=== PATIENT | male | born 2000 | race Caucasian/White ===

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

== ENCOUNTER 2020-10-21 13:10 | Outpatient (RCR) | payer OTHER, SELFPAY | END 2020-12-07 23:59 | LOC: IMMUN 13:10 | PROVIDERS: Referring Provider Family Medicine; Visit Provider Family Medicine | DX: Z23 Encounter for immunization (principal) | CPT/HCPCS: 0001A; 91300 ==

== ENCOUNTER 2021-05-24 11:00 | Emergency (ER) | payer OTHER, SELFPAY ==
[2021-05-24 11:01] VITALS: BP 122/67; PULSE 77; RESP 18; TEMP 36.6; O2SAT 100; BMI 18.1
--- NOTE | 2021-05-24 11:23 | CT_ITS ---
STUDY: CT BRAIN WITHOUT CONTRAST REASON FOR EXAM: Male, 21 years old. dizziness RADIATION DOSAGE (If Supplied By Facility): CTDIvol = ( 44.99 ) mGy, DLP = ( 812.98 ) mGycm TECHNIQUE: Transaxial CT imaging of the brain was performed without administration of intravenous contrast material. Individualized dose optimization techniques were used for this CT. COMPARISON: No relevant priors. FINDINGS: Normal size ventricles and extra-axial spaces for the patient''s age. Normal white matter tracts of the cerebral hemispheres. Again noted is the left basal ganglia prominent Virchow-Marcelino space. There is no intracranial hemorrhage. There are no findings of an acute ischemic infarction. Normal visualized paranasal sinuses. CT/Brain/Head without Contrast IMPRESSION: Unremarkable unenhanced CT scan of the brain. Electronically Signed: Jhonny Cruz MD at 12:44 EST Tel , Service support ,
--- NOTE | 2021-05-24 11:23 | EDS_ITS ---
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 He states that whenever he moves his head he gets dizzy room spinning sensation. He notes some associated nausea. No significant headaches. He states he feels off balance when he is walking. [facility] in the recommended that he come to the emergency room to get a scan. He denies any arm or leg weakness. No speech changes. No recent URIs. No tinnitus. PFSH PFSH Medical History Hernia Home Medications diazepam 5 mg PO Q8 PRN #10 tab 05/24/21 [Rx Last Taken Unknown] Allergy/AdvReac Type Severity Reaction Status Date / Time amoxicillin [From Augmentin] Allergy Shortness Verified 05/24/21 11:04 of breath clavulanic acid Allergy Shortness Verified 05/24/21 11:04 [From Augmentin] of breath hydrocodone Allergy Shortness Verified 05/24/21 11:04 of breath codeine AdvReac Other Verified 05/24/21 11:03 Social History (Updated 05/24/21 @ 11:[address] Severino Sultana, DO) current occupational status: student Smoking Status: Never smoker ROS ROS ED Constitutional Constitutional ED: Denies chills, fever(s) or weight loss Eyes Eyes: Denies change in vision or diplopia ENT ENT ED: Denies ear pain, rhinorrhea or sore throat Cardiovascular Cardiovascular: Denies chest pain, orthopnea, palpitations or racing heartbeat Respiratory/Chest Respiratory/Chest: Denies cough, dyspnea or orthopnea Gastrointestinal Gastrointestinal: Reports nausea; Denies abdominal pain, diarrhea or vomiting Genitourinary Genitourinary ED: Denies dysuria, hematuria or urinary frequency Musculoskeletal Musculoskeletal: Denies arthralgias or myalgias Integumentary Denies abscess or rash Neurologic Neurologic: Reports other Details: Dizziness ; Denies headache(s) or weakness Psychiatric Psychiatric: Denies anxiety, depression, suicidal ideation or suicidal thoughts Endocrine Endocrinology: Denies polydipsia, polyphagia or polyuria Allergic/Immunologic Allergic/Immunologic ED: Denies mouth swelling, tongue swelling or urticaria EXAM Physical Exam Const Vital Signs: 05/24/21 11:01 05/24/21 12:00 Temperature 97.8 F 97.8 F Temperature Source Temporal Temporal Pulse Rate 77 77 Respiratory Rate 18 18 Respiratory Effort Normal Non-Labored Respiratory Pattern Normal Blood Pressure 122/67 H 122/67 H Blood Pressure Mean 85 85 Pulse Ox 100 100 Oxygen Delivery Method Room Air Room Air Positive well nourished and well developed General Appearance ED: well developed HEENT Reports normocephalic, head/scalp atraumatic, TM's clear and moist mucous membranes Negative for trauma Tympanic Membrane ED: Yes TM's clear Eyes PERRL and EOMs intact bilaterally Eyes Narrative: No nystagmus Neck no lymphadenopathy, supple and no JVD Resp normal respiratory effort and clear to auscultation bilaterally Cardio regular rate, regular rhythm and no murmurs GI normal to inspection, nondistended, normoactive bowel sounds and non-tender Palpation: soft Back/Spine no CVA tenderness and normal ROM Extremity normal to inspection General Extremety ED: Negative for edema General Extremity: Negative for edema Neuro oriented x3 and CN's II-XII intact bilaterally Neuro Narrative: Positive Shadi-Hallpike Sensorium / Orientation: alert Motor Exam: strength 5/5 throughout Psych mental status grossly normal Mood & Affect: Negative for depressed or tearful Skin no rashes or lesions noted and no wounds MDM MDM MDM Narrative Medical decision making narrative: Patient received IV fluids and p.o. Valium. CT the brain was obtained and was negative. CBC and BMP were also obtained and were negative. Was noted to be leukopenic at 3.1. Covid swab negative. Patient was reassessed. He is able to get up and walk to the bathroom and feels better. On the right for him to have some Valium at home. We talked about positional vertigo repositioning techniques and following up with ENT if no improvement. Lab Data Labs: Laboratory Results - last 24 hr 05/24/21 05/24/21 11:50 11:50 WBC 3.1 L RBC 5.21 Hgb 16.5 Hct 47.9 MCV 91.9 MCH 31.7 MCHC 34.4 RDW Std Deviation 38.5 RDW Coeff of Marlon 11.4 L Plt Count 235 MPV 10.6 Immature Gran % (Auto) 0.000 Neut % (Auto) 49.8 Lymph % (Auto) 39.0 [place] % (Auto) 9.3 Eos % (Auto) 1.6 Baso % (Auto) 0.3 Absolute Neuts (auto) 1.6 L Absolute Lymphs (auto) 1.22 Nucleated RBC % 0 Sodium 142 Potassium 4.0 Chloride 107 Carbon Dioxide 30.0 Anion Gap 5 BUN 8 Creatinine 0.79 Estim Creat Clear Calc 123.37 Est GFR (MDRD) Af Amer 158 Est GFR (MDRD) Non-Af 131 BUN/Creatinine Ratio 10.1 Glucose 91 Calcium 9.6 Radiography Diagnostic Testing: Clinical Impression(s) from Imaging Studies Brain CT 05/24/21 11:23 IMPRESSION: Unremarkable unenhanced CT scan of the brain. Electronically Signed: Jhonny Cruz MD at 12:44 EST Tel , Service support , Discharge Plan Triage Chief Complaint: Dizziness ED Provider: Severino Sultana Dx/Rx/DC Orders Clinical Impression: Vertigo Instructions: ED BPV Vertigo Prescriptions: New diazepam [diazepam] 5 MG tablet 5 mg PO Q8 PRN (Reason: vertigo) Qty: 10 RF: 0 Primary Care Provider: Care Physician,No Primary Referrals: Noe Dominique MD [STAFF PHYSICIAN] - As Needed (for ENT if not improving or recurrent symptoms ) Care Physician,No Primary [Primary Care Provider] - Disposition Disposition: Home, Self Care
[2021-05-24] MEDS: 0.9% Normal Saline 1,000 ML 1000 ML IV (11:55)
[2021-05-24] MEDS: diazePAM 5 MG Tablet PO (11:55)
[2021-05-24 12:00] VITALS: BP 122/67; PULSE 77; RESP 18; TEMP 36.6; O2SAT 100
[2021-05-24 12:01] LABS: Absolute Lymphocyte Count 1.22 X10^3/uL (0.83-4.51); Absolute Neutrophil Count 1.6 X10^3/uL (2.0-7.7); Basophil# 0.01 X10^3/uL; Basophil% 0.3 % (0-1); Eosinophil# 0.05 X10^3/uL; Eosinophils% 1.6 % (0-5); Hematocrit 47.9 % (40-54); Hemoglobin 16.5 g/dL (13.0-16.5); Lymphocyte # 1.22 X10^3/ul (0.83-4.51); Mean Corp Hgb Conc 34.4 g/dL (32-36); Mean Corpuscular Hgb 31.7 pg (27.0-32.0); Mean Corpuscular Volume 91.9 fL (80-94); Mean Platelet Vol. 10.6 fl (6.2-12.0); Monocyte# 0.29 X10^3/uL; Monocyte% 9.3 % (0-10); NRBC Flagged by Analyzer 0 % (0-5); Neutrophil # 1.56 X10^3/uL (2.7-7.7); Neutrophil % 49.8 % (47-70); Platelet Count 235 K/mm3 (150-450); RBC Distribution Width CV 11.4 % (11.6-14.6); RBC Distribution Width SD 38.5 fl (35.1-43.9); Red Blood Count 5.21 M/mm3 (4.6-6.2); White Blood Count 3.1 K/mm3 (4.4-11.0)
[2021-05-24 12:15] LABS: Anion Gap 5 (5-15); BUN 8 mg/dL (7-18); BUN/Creat Ratio 10.1 RATIO (10-20); Calcium,Total 9.6 mg/dL (8.5-10.1); Chloride 107 mmol/L (98-107); Creatinine, Serum 0.79 mg/dL (0.70-1.30); EST Glomerular Filtration Rate 131 mL/min (>60); Est Glom Filt Rate - Afr Amer 158 mL/min (>60); Estimated Creatinine Clearance 123.37 ml/min; Glucose 91 mg/dL (74-106); Sodium Level 142 mmol/L (136-145)
[2021-05-24 14:01] VITALS: O2SAT 97
== END 2021-05-24 14:03 | disposition home or self-care (01) ==
PROVIDERS: Emergency Provider Emergency Medicine
DX: R42 Dizziness and giddiness (principal)
CPT/HCPCS: 70450; 80048; 85025; 87426; 96360; 96361; 99284; J7030; A4216

== ENCOUNTER 2021-07-26 16:06 | Outpatient (CLI) | payer OTHER, SELFPAY | END 2021-07-26 23:59 | disposition home or self-care (01) | LOC: IMMUN 07-28 16:06 | PROVIDERS: Visit Provider Family Medicine | DX: Z00.00 Encounter for general adult medical examination without abnormal findings (principal) ==